=== PATIENT | female | born 1980 | race Caucasian/White ===

== ENCOUNTER 2022-11-22 14:31 | Outpatient (CLI) | payer BC | END 2022-11-22 14:32 | disposition home or self-care (01) | LOC: SCSMRI 14:31 | PROVIDERS: ATTEND Family Medicine | DX: M54.12 Radiculopathy, cervical region (principal); M47.812 Spondylosis without myelopathy or radiculopathy, cervical region; M50.322 Other cervical disc degeneration at C5-C6 level; M50.222 Other cervical disc displacement at C5-C6 level | CPT/HCPCS: 72040; 72141 ==

== ENCOUNTER 2023-02-20 11:59 | Outpatient (CLI) | payer BC ==
[2023-02-20 12:42] LABS: Hemoglobin 13.6 g/dL (12.0-15.5); Mean Corpuscular HGB CONC 32.9 g/dL (32.0-36.0); Mean Corpuscular Hemoglobin 31.8 pg (27.0-33.0); Mean Corpuscular Volume 96.7 fl (81.6-98.3); Mean Platelet Volume 8.3 fl (7.4-10.4); Platelet Count 240 10x3/uL (150-450); RBC Distribution Width 12.6 % (11.5-14.5); Red Blood Cell (RBC) Count 4.28 10x6/uL (3.90-5.03); White Blood Cell (WBC) Count 5.1 10x3/uL (3.5-10.5)
[2023-02-20 12:58] LABS: INR-International Normal Ratio 0.9; PTT 26.2 sec (22.0-33.0); Prothrombin Time 9.9 sec (9.5-12.1)
[2023-02-20 13:22] LABS: Anion Gap 11 mmol/L (10-20); BUN (Urea Nitrogen) 15 mg/dL (7.0-18.7); Calc. Creatinine Clearance 0 mL/min (70-130); Calcium 9.5 mg/dL (7.8-10.44); Carbon Dioxide 28 mmol/L (22-29); Chloride 103 mmol/L (98-107); Estimated GFR 99; Glucose 88 mg/dL (70-105); Potassium 3.9 mmol/L (3.5-5.1); Sodium 138 mmol/L (136-145)
== END 2023-02-20 12:00 | disposition home or self-care (01) ==
LOC: LABBT 11:59
PROVIDERS: ATTEND Surgery
DX: Z01.818 Encounter for other preprocedural examination (principal); M48.02 Spinal stenosis, cervical region; M50.022 Cervical disc disorder at C5-C6 level with myelopathy
CPT/HCPCS: 80048; 85027; 85610; 85730; 93005; 93010

== ENCOUNTER 2023-02-21 06:14 | Observation (INO) | payer BC ==
[2023-02-21] MEDS ORDERED: Thrombin 5000 UNITS/5 ML VIAL ONE (06:24)
[2023-02-21] MEDS ORDERED: Fentanyl 250 MCG/5 ML VIAL ONE (06:42)
[2023-02-21] MEDS ORDERED: CEFAZOLIN 2 GM VIAL ONE (06:59)
[2023-02-21] MEDS ORDERED: Sodium Chloride 0.9% 100 ML ONE (06:59)
[2023-02-21] MEDS ORDERED: Midazolam HCl 2 mg/2 ml Vial ONE (07:10)
[2023-02-21 07:16] LABS: BHCG - Serum Negative (NEGATIVE); Pregs Control Background? CLEAR/WHITE (CLR/WHITE); Pregs Control Bar Appear? YES (CONTROL BAR)
[2023-02-21] MEDS ORDERED: PROPOFOL 200 MG/20 ML VIAL ONE (07:40)
[2023-02-21] MEDS ORDERED: Rocuronium Bromide 10 MG/ML (10ML VIAL) ONE (07:40)
[2023-02-21] MEDS ORDERED: Dexamethasone 20 MG/5 ML VIAL ONE (07:40)
[2023-02-21] MEDS ORDERED: NEOSTIGMINE 3 MG/3 ML SYR 3 MG/3 ML SYRINGE ONE (07:40)
[2023-02-21] MEDS ORDERED: Lidocaine 1% PF 5 ML VIAL ONE (07:40)
[2023-02-21] MEDS ORDERED: Glycopyrrolate 0.2 MG/ML 5 ML SYRINGE ONE (07:40)
[2023-02-21] MEDS ORDERED: Ondansetron PF 4 MG/2 ML Vial ONE (07:40)
[2023-02-21] MEDS ORDERED: PACU-Morphine 4MG/ML VIAL SLOW IVP PRN (09:39)
[2023-02-21] MEDS ORDERED: Promethazine HCl 25 MG/ML VIAL IM PRN (09:39)
[2023-02-21] MEDS ORDERED: HYDROmorphone 2 MG/ML VIAL SLOW IVP PRN (09:39)
[2023-02-21] MEDS ORDERED: Ondansetron HCl/PF 4 MG/2 ML Vial IVP PRN (09:39)
[2023-02-21] MEDS ORDERED: Morphine Sulfate 2 MG/ML SYRINGE SLOW IVP PRN (09:39)
[2023-02-21] MEDS ORDERED: Acetaminophen 325 MG TAB PO PRN (10:22)
[2023-02-21] MEDS ORDERED: diphenhydrAMINE 25 MG CAP PO PRN (10:22)
[2023-02-21] MEDS ORDERED: traMADol HCl 50 MG TAB PO PRN (10:22)
[2023-02-21] MEDS ORDERED: Ondansetron PF 4 MG/2 ML Vial IVP PRN (10:22)
[2023-02-21] MEDS ORDERED: Acetaminophen/Codeine 30-300mg Tablet PO PRN (10:22)
[2023-02-21] MEDS ORDERED: Phenol 118 ML BOT PO PRN (10:24)
[2023-02-21] MEDS ORDERED: Benzocaine/Menthol 1 LOZ LOZ PO PRN (10:24)
[2023-02-21] MEDS ORDERED: Cyclobenzaprine 10 MG TAB PO PRN (10:26)
[2023-02-21] MEDS ORDERED: HYDROmorphone 0.5 MG/0.5 ML SYRINGE ONE (10:47)
[2023-02-21] MEDS ORDERED: fentaNYL 50 mcg/mL 1 mL Vial ONE (11:01)
[2023-02-21] MEDS: Morphine 2 MG/ML VIAL SLOW IVP PRN ×3 (11:51→15:23)
[2023-02-21] MEDS: Sodium Chloride 0.9% 1,000 ML IV SCH ×2 (11:52→23:22)
[2023-02-21 12:29] VITALS: BMI 28.2
[2023-02-21] MEDS: Gabapentin 300 MG CAP PO SCH ×2 (15:08→21:22)
[2023-02-21] MEDS: CEFAZOLIN 2 GM in Sodium Chloride 0.9% 100 ML IVPB SCH ×2 (15:09→23:23)
[2023-02-21] MEDS: HYDROcodone/Acetaminophen 7.5/325 mg Tablet PO PRN ×2 (18:00→23:23)
[2023-02-22] MEDS: HYDROcodone/Acetaminophen 7.5/325 mg Tablet PO PRN (05:37)
[2023-02-22] MEDS: CEFAZOLIN 2 GM in Sodium Chloride 0.9% 100 ML IVPB SCH (05:37)
[2023-02-22 08:08] VITALS: BP 132/86; TEMP 98
[2023-02-22] MEDS: Gabapentin 300 MG CAP PO SCH (08:34)
[2023-02-22] MEDS ORDERED: Bupropion 150 MG XL TAB PO SCH (09:00)
[2023-02-22] MEDS ORDERED: Venlafaxine HCl XR 75 MG CAP PO SCH (09:00)
== END 2023-02-22 10:20 | disposition home or self-care (01) ==
LOC: SDC 06:14 → T4-A 10:26
PROVIDERS: ADMIT Surgery; ATTEND Surgery
PROC: 0RG20A0 Fusion of 2 or more Cervical Vertebral Joints with Interbody Fusion Device, Anterior Approach, Anterior Column, Open Approach (ICD-10-PCS; principal; 2023-02-21)
PROC: 0RB30ZZ Excision of Cervical Vertebral Disc, Open Approach (ICD-10-PCS; 2023-02-21)
DX: M48.02 Spinal stenosis, cervical region (principal); M54.12 Radiculopathy, cervical region
CPT/HCPCS: 84703; C1713; J1100; J1170; J2250; J2272; J2405; J2704; J3010; J3490; J7050

== ENCOUNTER 2023-04-01 16:32 | Outpatient (CLI) | payer BC | END 2023-04-01 16:33 | disposition home or self-care (01) | LOC: SCSRAD 16:32 | PROVIDERS: ATTEND Surgery | DX: M54.12 Radiculopathy, cervical region (principal); Z98.1 Arthrodesis status | CPT/HCPCS: 72040 ==